=== PATIENT | male | born 1965 | race Caucasian/White ===

== ENCOUNTER 2016-04-23 16:59 | Emergency (ER) | payer MEDICAID ==
[~2016-04-23] VITALS: Ht 167.6 cm; Wt 99.8 kg
[2016-04-23 17:24] VITALS: BP 138/82
== END 2016-04-23 20:43 | disposition home or self-care (01) ==
LOC: ER 17:13
DX: S83.91XA Sprain of unspecified site of right knee, initial encounter (principal); B35.6 Tinea cruris; Z87.820 Personal history of traumatic brain injury; Z88.6 Allergy status to analgesic agent; X58.XXXA Exposure to other specified factors, initial encounter; Y93.89 Activity, other specified; Y99.8 Other external cause status; Y92.89 Other specified places as the place of occurrence of the external cause
CPT/HCPCS: 29505

== ENCOUNTER 2016-11-30 06:28 | Emergency (ER) | payer MEDICAID ==
[~2016-11-30] VITALS: Ht 167.6 cm; Wt 104.3 kg
[2016-11-30 06:38] VITALS: BP 159/100
== END 2016-11-30 07:45 | disposition left against medical advice (07) ==
LOC: ER 06:28
DX: S81.802D Unspecified open wound, left lower leg, subsequent encounter (principal); X58.XXXD Exposure to other specified factors, subsequent encounter; Z53.21 Procedure and treatment not carried out due to patient leaving prior to being seen by health care provider

== ENCOUNTER → 2016-12-05 | Emergency (ER) | payer MEDICAID | END | disposition left against medical advice (07) | LOC: ER 01:55 | DX: M79.605 Pain in left leg (principal); Z53.21 Procedure and treatment not carried out due to patient leaving prior to being seen by health care provider ==